=== PATIENT | male | born 1995 | race Caucasian/White ===

== ENCOUNTER 2017-08-10 00:55 | Emergency (ER) | payer SELFPAY ==
[~2017-08-10] VITALS: Ht 177.8 cm; Wt 75.0 kg
[~2017-08-10 00:55] MED LIST: Z.0.NO CURRENT MEDS
[2017-08-10 01:08] VITALS: BP 114/61; PULSE 100; RESP 14; TEMP 98; O2SAT 95
--- NOTE | 2017-08-10 01:18 | PD ---
HPI Chief Complaint: OD/ Ingestion Time Seen by Provider: 01:02 Travel History International Travel<30 days: No Contact w/Intl Traveler<30days: No History of Present Illness HPI 22yo M presents to the ED with EVAC after heroin overdose. Pt was found behind a bar with shallow respirations and was given 2 doses of narcan 0.4mg. Pt is now awake, alert and answering all questions. Denies any fever, chest pain, sob , n/v, abdominal pain, focal weakness or numbness. PFSH Social History Alcohol Use: Yes Tobacco Use: Yes Allergies-Medications (Allergen,Severity, Reaction): Coded Allergies: No Known Allergies (Verified Allergy, Unknown, 08/10/17) Reported Meds & Prescriptions Reported Meds & Active Scripts Active Narcan Nasal [place] (Naloxone HCl) 4 Mg/Act [place] 4 Mg NASAL ONCE PRN Contents of 1 nasal spray as a single dose; may repeat every 2 to 3 minutes in alternating nostrils until medical assistance becomes available. Review of Systems Except as stated in HPI: all other systems reviewed are Neg Physical Exam Narrative GENERAL: 22yo M not in distress. SKIN: Focused skin assessment warm/dry. HEAD: Atraumatic. Normocephalic. EYES: Pupils equal and round. No scleral icterus. No injection or drainage. ENT: No nasal bleeding or discharge. Mucous membranes pink and moist. NECK: Trachea midline. No JVD. CARDIOVASCULAR: Regular rate and rhythm. No murmur appreciated. RESPIRATORY: No accessory muscle use. Clear to auscultation. Breath sounds equal bilaterally. GASTROINTESTINAL: Abdomen soft, non-tender, nondistended. MUSCULOSKELETAL: No obvious deformities. No clubbing. No cyanosis. No edema. NEUROLOGICAL: Awake and alert. No obvious cranial nerve deficits. Motor grossly within normal limits in all extremities. Sensation intact. Normal speech. PSYCHIATRIC: Appropriate mood and affect; insight and judgment normal. Data Data Last Documented VS Vital Signs Date Time Temp Pulse Resp B/P (MAP) Pulse Ox O2 Delivery O2 Flow Rate FiO2 08/10/17 09:23 08/10/17 07:58 57 12 100 Room Air 08/10/17 01:08 98.0 Orders Orders Sodium Chlor 0.9% 1000 Ml Inj (Ns 1000 M (08/10/17 01:30) Naloxone Inj (Narcan Inj) (08/10/17 03:30) Complete Blood Count With Diff (08/10/17 03:29) Basic Metabolic Panel (Bmp) (08/10/17 03:29) Protein Corrected Calcium(Pcc) (08/10/17 03:50) Calcium Gluconate Inj (Calcium Gluconate (08/10/17 06:30) Ed Discharge Order (08/10/17 06:58) Labs Laboratory Tests Test 08/10/17 03:50 White Blood Count 10.0 TH/MM3 Red Blood Count 4.50 MIL/MM3 Hemoglobin 12.3 GM/DL Hematocrit 37.6 % Mean Corpuscular Volume 83.4 FL Mean Corpuscular Hemoglobin 27.3 PG Mean Corpuscular Hemoglobin Concent 32.7 % Red Cell Distribution Width 15.4 % Platelet Count 240 TH/MM3 Mean Platelet Volume 8.4 FL Neutrophils (%) (Auto) 82.6 % Lymphocytes (%) (Auto) 10.5 % Monocytes (%) (Auto) 6.6 % Eosinophils (%) (Auto) 0.1 % Basophils (%) (Auto) 0.2 % Neutrophils # (Auto) 8.3 TH/MM3 Lymphocytes # (Auto) 1.1 TH/MM3 Monocytes # (Auto) 0.7 TH/MM3 Eosinophils # (Auto) 0.0 TH/MM3 Basophils # (Auto) 0.0 TH/MM3 CBC Comment DIFF FINAL Differential Comment Blood Urea Nitrogen 6 MG/DL Creatinine 0.79 MG/DL Random Glucose 117 MG/DL Total Protein 6.3 GM/DL Calcium Level 7.2 MG/DL Sodium Level 142 MEQ/L Potassium Level 3.7 MEQ/L Chloride Level 111 MEQ/L Carbon Dioxide Level 23.4 MEQ/L Anion Gap 8 MEQ/L Estimat Glomerular Filtration Rate 121 ML/MIN Protein Corrected Calcium 7.6 MG/DL [facility] Medical Decision Making Medical Screen Exam Complete: Yes Emergency Medical Condition: Yes Differential Diagnosis Heroin overdose Narrative Course 22yo M with heroin overdose. Pt admits to injecting heroin in his hand today. Denies any complaints. Pt was given narcan so we will observe him in the ED with end tidal CO2 since the half life of narcan is shorter than heroin. Pt has been on continuous CO2 monitoring but RR started going down to 7 and 8. He is easily arousable but continues to drop his RR so narcan 0.4mg IV given. Labs reviewed, no leukocytosis. H/H 12.3/37.6. Corrected calcium was low so replaced with calcium gluconate. Pt has been observed in the ED and has been awake. Only gave one dose of narcan in the ED and observed for 4 hours after that dose. Pt wants to go home. Return precautions given. Diagnosis Primary Impression: Heroin overdose Qualified Codes: T40.1X1A - Poisoning by heroin, accidental (unintentional), initial encounter Patient Instructions: General Instructions Departure Forms: Tests/Procedures Additional Instructions: Please follow up with your primary care physician in 2-3 days. Return to the ED if symptoms worsen. Med/Other Pt SpecificInfo: Prescription(s) given Scripts Naloxone Nasal [place] (Narcan Nasal [place]) 4 Mg/Act [place] 4 MG NASAL ONCE Y for OPIOID OVERDOSE, #1 SPRAY 0 Refills Contents of 1 nasal spray as a single dose; may repeat every 2 to 3 minutes in alternating nostrils until medical assistance becomes available. Prov: Addie Herrera DO 08/10/17 Disposition: 01 DISCHARGE HOME Condition: Stable Addie Herrera DO Aug 10, 2017 01:17
[2017-08-10] MEDS ORDERED: SODIUM CHLOR 0.9% 1000 ML INJ 1,000 ML IV ONE (01:30)
[2017-08-10 03:14] VITALS: BP 96/55; PULSE 85; RESP 8; O2SAT 99
[2017-08-10] MEDS ORDERED: NALOXONE HCL 0.4 MG/ML AMP IV PUSH ONE (03:30)
[2017-08-10 04:24] LABS: AUTOMATED NEUTROPHIL # 8.3 TH/MM3 (1.8-7.7); BASOPHIL % 0.2 % (0.0-2.0); EOSINOPHIL % 0.1 % (0.0-4.0); HEMATOCRIT 37.6 % (39.0-51.0); HEMOGLOBIN 12.3 GM/DL (13.0-17.0); LYMPH % 10.5 % (9.0-44.0); LYMPHOCYTE # 1.1 TH/MM3 (1.0-4.8); MEAN CELL VOLUME 83.4 FL (80.0-100.0); MEAN CORPUSCULAR HEMOGLOBIN 27.3 PG (27.0-34.0); MEAN CORPUSCULAR HGB CONC 32.7 % (32.0-36.0); MEAN PLATELET VOLUME 8.4 FL (7.0-11.0); MONO % 6.6 % (0.0-8.0); MONOCYTE # 0.7 TH/MM3 (0-0.9); NEUT % 82.6 % (16.0-70.0); PLATELET COUNT 240 TH/MM3 (150-450); RED CELL DISTRIBUTION WIDTH 15.4 % (11.6-17.2)
[2017-08-10 04:44] LABS: BICARBONATE 23.4 MEQ/L (21.0-32.0); CALCIUM 7.2 MG/DL (8.5-10.1); CREATININE 0.79 MG/DL (0.60-1.30)
[2017-08-10 04:55] LABS: CALCIUM-PROTEIN CORRECTED 7.6 MG/DL (8.5-10.1); TOTAL PROTEIN 6.3 GM/DL (6.4-8.2)
[2017-08-10] MEDS ORDERED: CALCIUM GLUCONATE INJ 1 GM in DEXTROSE 5% IN WATER 100ML INJ 100 ML IV ONE ×2 (06:30)
[2017-08-10] MEDS ORDERED: NALO1SPR NASAL (06:52)
[2017-08-10 07:58] VITALS: BP 98/58; PULSE 57; RESP 12; O2SAT 100
== END 2017-08-10 09:25 | disposition home or self-care (01) ==
LOC: NEPC 00:55
DX: T40.1X1A Poisoning by heroin, accidental (unintentional), initial encounter (principal); Z72.0 Tobacco use
CPT/HCPCS: 80048; 84155; 85025; 96361; 96365; 96375; 99284; J0610; J2310; J7030